=== PATIENT | female | born 1985 ===

== ENCOUNTER 2017-06-08 07:20 | Emergency (ER) | payer MEDICAID ==
[2017-06-08 07:22] VITALS: BMI 23.0
[2017-06-08 07:33] VITALS: BP 136/84; PULSE 102; TEMP 97.8; O2SAT 98
[2017-06-08 07:48] VITALS: RESP 18
--- NOTE | 2017-06-08 08:28 | ED PDOC ---
HPI: Abdomen Time Seen by Provider: 06/08/17 07:50 Chief Complaint (Nursing): Abdominal Pain Chief Complaint (Provider): Abdominal pain, vaginal bleeding History Per: Patient History/Exam Limitations: no limitations Onset/Duration Of Symptoms: Days (4) Outside of [place] travel?: No Current Symptoms Are (Timing): Still Present Location Of Pain/Discomfort: Suprapubic Quality Of Discomfort: Cramping, "Pain" Additional Complaint(s): 31yo female, with no past medical history, presents to the ED for evaluation of worsening vaginal bleeding for the past 4 days. Patient states she is currently and 4 days ago, she had mild vaginal spotting; patient states she went to a facility in [place] 3 days ago and had labs, ultrasound performed. Patient is unsure of results and does not have the reports with her. She reports suprapubic abdominal pain and cramping. She denies any other medical complaints. Abnormal Vaginal Bleeding: Yes : 2 Para: 0 Miscarriage: 1 Past Medical History Reviewed: Historical Data, Nursing Documentation, Vital Signs Vital Signs: Last Vital Signs Temp 97.8 F 06/08/17 07:42 Pulse 102 H 06/08/17 07:42 Resp 18 06/08/17 07:42 BP 136/84 06/08/17 07:42 Pulse Ox 98 06/08/17 10:48 - Medical History PMH: No Chronic Diseases - Surgical History Surgical History: No Surg Hx - Family History Family History: States: No Known Family Hx - Home Medications Home Medications: Ambulatory Orders Medication Instructions Recorded No Known Home Med 12/25/15 - Allergies Allergies/Adverse Reactions: Allergies Allergy/AdvReac Type Severity Reaction Status Date / Time No Known Allergies Allergy Verified 01/04/16 09:32 Review of Systems ROS Statement: Except As Marked, All Systems Reviewed And Found Negative Gastrointestinal: Positive for: Abdominal Pain Genitourinary Female: Positive for: Vaginal Bleeding Physical Exam - Reviewed Nursing Documentation Reviewed: Yes Vital Signs Reviewed: Yes - Physical Exam Appears: Positive for: Non-toxic Head Exam: Positive for: ATRAUMATIC, NORMAL INSPECTION, NORMOCEPHALIC Skin: Positive for: Normal Color Eye Exam: Positive for: Normal appearance Neck: Positive for: Supple Cardiovascular/Chest: Positive for: Regular Rate, Rhythm. Negative for: Murmur Respiratory: Positive for: Normal Breath Sounds. Negative for: Respiratory Distress Gastrointestinal/Abdominal: Positive for: Soft, Tenderness (suprapubic tenderness to palpation) Back: Positive for: Normal Inspection Extremity: Positive for: Normal ROM Neurologic/Psych: Positive for: Alert, Oriented. Negative for: Motor/Sensory Deficits - Laboratory Results Result Diagrams: 06/08/17 08:56 - ECG O2 Sat by Pulse Oximetry: 98 (RA) Pulse Ox Interpretation: Normal Medical Decision Making Medical Decision Making: Time: 821 Impression: Vaginal bleeding, suprapubic abdominal pain Differential: Ectopic , threatened Plan: -- US OB Transvaginal -- Labs Reassess Time: 101 US Transvaginal Impression: Complex thickened heterogeneous endometrium measuring approximately 1.5 cm without evidence of vascularity. Heterogeneous appearance of the lower uterine segment and cervix. No evidence of intrauterine gestational sac. If indeed the patient is based on serum beta HCG values, the sonographic findings represent either: Very early IUP; embryonic demise; ectopic gestation. Follow-up with serial quantitative serum beta HCG measurements and post OBGYN follow-up as clinically indicated, since ectopic gestation cannot be excluded based only on sonographic findings. Numerous nabothian cysts. Complex 2.9 x 2.3 x 1.2 cm left ovarian cystic lesion. Recommend 6 week ultrasound follow-up to assess for resolution.\\ [id number] Ngo. Reviewed the case and US report. Recommends discharge with follow up with PCP in 1 week. Scribe Attestation: Documented by Sophia Olivares acting as a scribe for Mariaelena Quevedo MD. Provider Attestation: All medical record entries made by the Scribe were at my direction and personally dictated by me. I have reviewed the chart and agree that the record accurately reflects my personal performance of the history, physical exam, medical decision making, and the department course for this patient. I have also personally directed, reviewed, and agree with the discharge instructions and disposition. Disposition - Clinical Impression Clinical Impression: Threatened miscarriage, Spontaneous - Patient ED Disposition Is Patient to be Admitted: No Doctor Will See Patient In The: Office Counseled Patient/Family Regarding: Studies Performed, Diagnosis - Disposition Referrals: [facility] [Outside] Disposition: Routine/Home Disposition Time: 16:00 Condition: GOOD Additional Instructions: Follow up with your PCP in 1 week. Instructions: Spontaneous Miscarriage (ED) Print Language: TUNISIAN
[2017-06-08 09:02] LABS: HEMATOCRIT 43.1 % (34.0-47.0); MEAN CELL VOLUME 95.3 fl (81.0-99.0); MEAN CORPUSCULAR HEMOGLOBIN 32.1 pg (27.0-31.0); MEAN CORPUSCULAR HGB CONC 33.7 g/dL (33.0-37.0); RED CELL DISTRIBUTION WIDTH 12.5 % (11.5-14.5); WHITE BLOOD COUNT 9.1 K/uL (4.8-10.8)
--- NOTE | 2017-06-08 10:29 | US ---
Indication: Vaginal bleeding Comparison: None available Technique: Transvaginal pelvic ultrasound. Findings: The uterus measures approximately 9.2 x 5.8 x 4.8 cm. Anteverted. Complex thickened heterogeneous endometrium measuring approximately 1.5 cm without evidence of vascularity. Heterogeneous appearance of the lower uterine segment and also noted. No intrauterine gestational sac identified. Numerous nabothian cysts. The right ovary measures 3.7 x 2.8 x 2.0 cm. The left ovary measures 3.6 x 3.6 x 2.3 cm and contains complex 2.9 x 2.3 x 1.2 cm cystic lesion. Blood flow was demonstrated to both ovaries. Impression: Complex thickened heterogeneous endometrium measuring approximately 1.5 cm without evidence of vascularity. Heterogeneous appearance of the lower uterine segment and cervix. No evidence of intrauterine gestational sac. If indeed the patient is based on serum beta HCG values, the sonographic findings represent either: Very early IUP; embryonic demise; ectopic gestation. Follow-up with serial quantitative serum beta HCG measurements and post OBGYN follow-up as clinically indicated, since ectopic gestation cannot be excluded based only on sonographic findings. Numerous nabothian cysts. Complex 2.9 x 2.3 x 1.2 cm left ovarian cystic lesion. Recommend 6 week ultrasound follow-up to assess for resolution.
== END 2017-06-08 16:20 | disposition home or self-care (01) ==
LOC: H.ER 07:20
DX: O03.9 Complete or unspecified spontaneous abortion without complication (principal); N88.8 Other specified noninflammatory disorders of cervix uteri